=== PATIENT | female | born 1990 | race Two or more races ===

== ENCOUNTER 2017-08-25 22:48 | Emergency (ER) | payer SELFPAY ==
[~2017-08-25] VITALS: Ht 142.2 cm; Wt 50.2 kg
[2017-08-26] MEDS ORDERED: HYDROCODONE/ACETAMINOPHEN 5/325MG TABLET PO ONE (00:45)
[2017-08-26 00:57] LABS: BASOPHILS % 0.7 % (0.0-2.0); EOSINOPHILS % 3.3 % (0.0-5.0); HEMATOCRIT. 37.7 % (36.0-48.0); HEMOGLOBIN. 13.1 g/dL (12.0-16.0); LYMPHOCYTES % 48.9 % (20.0-50.0); MEAN CORPUSCULAR HEMOGLOBIN 31.7 pg (28.0-32.0); MEAN CORPUSCULAR VOLUME 91.1 fL (81.0-99.0); MEAN PLATELET VOLUME 10.4 fl (7.4-10.4); MONOCYTES % 6.2 % (2.0-8.0); NEUTROPHILS % 40.9 % (40.0-76.0); PLATELET 232 x1000/uL (130-400); RED BLOOD CELL COUNT 4.14 mill/uL (4.2-5.4); RED CELL DISTRIBUTION WIDTH 13.2 % (11.6-14.6)
[2017-08-26 01:05] LABS: CHLORIDE 112 mEq/L (98-107)
[2017-08-26 05:00] VITALS: BP 106/59
== END 2017-08-26 05:00 | disposition home or self-care (01) ==
LOC: ER 22:48
DX: R07.89 Other chest pain (principal); M79.602 Pain in left arm; M54.89 Other dorsalgia
CPT/HCPCS: 36415; 71045; 80048; 81025; 84484; 85025; 85379; 93005; 99285; Z7610